=== PATIENT | male | born 1995 | race Hispanic/Latino ===

== ENCOUNTER 2023-11-03 15:36 | Emergency (ER) | payer OTHER ==
[2023-11-03] MEDS ORDERED: Ketorolac Tromethamine 30 MG (1 mL) VIAL ONE (18:22)
== END 2023-11-03 18:55 | disposition home or self-care (01) ==
LOC: CSHERS 15:36
DX: S60.131A Contusion of right middle finger with damage to nail, initial encounter (principal); X58.XXXA Exposure to other specified factors, initial encounter
CPT/HCPCS: 96372; J1885

== ENCOUNTER 2025-05-02 19:26 | Emergency (ER) | payer OTHER ==
[2025-05-02 19:59] LABS: Glucose, Urine (Dipstick) Normal (Negative); Leukocyte 25 (Negative); Protein, Urine (Dipstick) Negative (Neg-Trace); Specific Gravity, Urine 1.010 (1.005-1.030)
[2025-05-02 20:10] LABS: CAUTI Indications for Culture Pelvic or flank pain; RBC/HPF 0-3 HPF (0-3); WBC/HPF 0-3 HPF (0-3)
[2025-05-02 20:12] LABS: Bacteria/HPF 2+ HPF (None Seen); Urine Culture Reflex No No
== END 2025-05-02 20:21 | disposition home or self-care (01) ==
LOC: CSHERS 19:26
DX: J10.1 Influenza due to other identified influenza virus with other respiratory manifestations (principal)
CPT/HCPCS: 81001; 87081; 87428; 87430; 99283